=== PATIENT | female | born 1960 ===

== ENCOUNTER 2017-09-15 06:48 | Day surgery (SDC) | payer OTHER ==
[~2017-09-15 06:48] MED LIST: LISINOPRIL-HCT1 EAC2 PO; PENTOXIFYLLINE400 MG PO; VITA-BEE WITH1 EACH PO
== END 2017-09-15 11:15 | disposition home or self-care (01) ==
LOC: CIR.AMB 06:48
DX: D17.22 Benign lipomatous neoplasm of skin and subcutaneous tissue of left arm (principal); M65.832 Other synovitis and tenosynovitis, left forearm